=== PATIENT | female | born 1940 | race Caucasian/White ===

== ENCOUNTER 2018-05-13 10:29 | Emergency (ER) | payer MEDICARE ==
[~2018-05-13] VITALS: Ht 162.6 cm; Wt 71.8 kg
[~2018-05-13 10:29] MED LIST: CIPRO500 MG PO; CLINDAMYCIN300 M1 PO; NAPROXEN500 MG PO; SYNTHROID88 MCG PO
[2018-05-13] MEDS ORDERED: TORADOL PO (11:52)
[2018-05-13] MEDS ORDERED: MEDDOSEPAK PO (11:52)
[2018-05-13 12:04] VITALS: BP 179/77
== END 2018-05-13 12:20 | disposition home or self-care (01) ==
LOC: ED 10:29
DX: M25.512 Pain in left shoulder (principal); M25.511 Pain in right shoulder

== ENCOUNTER → 2018-05-26 | Outpatient (REF) | payer MEDICARE ==
[~2018-05-26] MED LIST changes: +MEDDOSEPAK PO; +TORADOL PO
== END | disposition home or self-care (01) ==
LOC: LAB 16:59
PROVIDERS: ATTEND Nurse Practitioner
DX: E03.9 Hypothyroidism, unspecified (principal)